=== PATIENT | male | born 2000 | race Caucasian/White ===

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

== ENCOUNTER → 2019-02-20 | Outpatient (CLI) | payer BC ==
[~2019-02-20] VITALS: Ht 162.6 cm; Wt 104.5 kg
[~2019-02-20] MED LIST: LEXAPRO 10MG10 MG PO
[2019-02-20 16:05] VITALS: BP 124/76
== END ==
LOC: AMSURD 15:49
DX: R55 Syncope and collapse (principal); R42 Dizziness and giddiness; R63.4 Abnormal weight loss; R51 Headache; R53.83 Other fatigue; Z77.128 Contact with and (suspected) exposure to other hazards in the physical environment

== ENCOUNTER → 2020-03-24 | Outpatient (CLI) | payer BC ==
[2019-02-20 16:05] VITALS: BP 124/76
== END ==
LOC: RAD 15:52
DX: M25.531 Pain in right wrist (principal); M79.641 Pain in right hand; M79.644 Pain in right finger(s)

== ENCOUNTER → 2020-10-21 | Outpatient (CLI) | payer BC ==
[2019-02-20 16:05] VITALS: BP 124/76
== END ==
LOC: LAB 14:10
DX: J02.9 Acute pharyngitis, unspecified (principal); R19.7 Diarrhea, unspecified; Z20.828 Contact with and (suspected) exposure to other viral communicable diseases